=== PATIENT | male | born 2005 | race Caucasian/White ===

== ENCOUNTER 2023-10-25 22:45 | Emergency (ER) | payer OTHER, SELFPAY ==
[2023-10-25 22:47] VITALS: BP 161/84; PULSE 96; RESP 16; TEMP 36.8; O2SAT 99
--- NOTE | 2023-10-25 23:06 | PC.NURSE ---
Patient became pale and had a near syncopal episode in triage.
[2023-10-25 23:08] LABS: Basophils Absolute Auto 0.1 K/mm3 (0.0-0.1); Basophils Percent Auto 0.8 % (0.2-1.2); Eosinophils Absolute Auto 0.3 K/mm3 (0-0.3); Eosinophils Percent Auto 3.7 % (0-4.4); Hematocrit 47.4 % (42.0-52.0); Hemoglobin 16.1 g/dL (14.0-18.0); Immature Granulocyte Absolute 0.01 K/mm3 (0.00-0.031); Immature Granulocyte Percent A 0.1 % (0-0.5); Lymphocytes Percent Auto 41.3 % (18.3-44.2); Mean Corpuscular Hemoglobin 29.1 pg (26-34); Mean Corpuscular Volume 85.7 fl (80-100); Mean Platelet Volume 10.4 fl (7.4-10.4); Monocytes Absolute Auto 0.9 K/mm3 (0.1-0.6); Monocytes Percent Auto 9.4 % (2.6-8.5); Neutrophils Absolute Auto 4.1 K/mm3 (1.3-6.7); Neutrophils Percent Auto 44.7 % (45.5-73.1); Platelet Count Result 296 k/mm3 (150-375); Red Blood Count 5.53 M/mm3 (4.6-6.20); Red Cell Distribution Width 13.1 % (11.5-14.5); White Blood Count 9.2 K/mm3 (4.5-10.0)
[2023-10-25 23:14] LABS: Appearance Urine Clear (Clear); Bilirubin Urine Negative (Negative); Blood Urine Negative (Negative); Color Urine Yellow (Yellow); Glucose Urine UA Negative (Negative); Ketones Urine Negative (Negative); Leukocyte Esterase Ur Negative LEU/UL (Negative); Nitrate Urine Negative (Negative); Protein Urine Negative (Negative); Specific Grav Ur 1.024 (1.001-1.035)
[2023-10-25 23:22] LABS: Alanine Aminotransferase 35 U/L (6-50); Albumin Level 4.7 g/dL (3.5-5.1); Alkaline Phosphatase 54 U/L (38-126); Anion Gap 8 mmol/L (8-16); Aspartate Amino Transferase 35 U/L (17-59); Bilirubin,Total 0.6 mg/dL (0.2-1.3); Blood Urea Nitrogen 16 mg/dL (9-20); Calcium 9.5 mg/dL (8.4-10.2); Carbon Dioxide 27 mmol/L (22-30); Chloride 105 mmol/L (98-107); Estimated CRCL calculation 172 ml/min; Estimated Glomerular Filt Rate > 60; Glucose 93 mg/dL (65-110); Lipase 28 U/L (23-300); Potassium 3.8 mmol/L (3.4-5.0); Sodium 140 mmol/L (137-145)
[2023-10-25 23:23] LABS: Add Urine Microscopic? NO
[2023-10-25 23:41] VITALS: O2SAT 98
[2023-10-25 23:51] VITALS: O2SAT 98
[2023-10-26 00:02] VITALS: BP 130/63; PULSE 69
--- NOTE | 2023-10-26 00:02 | ED.GENADULT ---
HPI - General Adult General Chief complaint: Nausea/Vomiting/Diarrhea Stated complaint: vomiting/diarrhea/ruptured ear drum Time Seen by Provider: 10/25/23 23:30 Source: patient Mode of arrival: ambulatory Limitations: no limitations History of Present Illness HPI narrative: This is a 18-year-old male with chief complaint of nausea vomiting leading at 0900 this morning. He also had reports that during 1 of the episodes of vomiting he started to have some ear pain and felt some drainage out of the left ear. Reports that he had bloody drainage from this ear. States he has had multiple your problems in the past with multiple sets of tubes and ear infections on that left ear before. Denies abdominal pain, fevers, chills, GI bleeding symptoms, urinary symptoms. Denies sore throat cough cough, neck pain, headache. Related Data Allergies Allergy/AdvReac Type Severity Reaction Status Date / Time No Known Allergies Allergy Verified 10/25/23 22:50 Review of Systems Review of Systems: All systems as dictated in HPI Exam Narrative: GENERAL: Well-appearing, well-nourished, and in no acute distress. HEAD: Normocephalic, atraumatic. EYES: PERRLA and EOMI. ENT: Exam is 50 cm defect noted. There is prelim drainage increased erythema. There is some bloody drainage as well. The ear canal seems to be inflamed. Nares clear, no rhinorrhea or epistaxis. Mucous membranes moist. Oropharynx without tonsillar hypertrophy exudate or other lesions. NECK: Supple. No adenopathy or masses. CHEST: No respiratory distress. Clear to auscultation. No wheezes rales or rhonchi HEART: Regular rate and rhythm. No murmur heard. Normal peripheral pulses. ABDOMEN: Soft, nontender, nondistended, normal active bowel sounds. MSK: Normal range of motion. No edema. SKIN: Warm, dry, no rash. NEURO: Alert and oriented x3. No focal deficits. PSYCH: Normal mood and affect. Course Vital Signs Vital signs: Vital Signs Temperature 98.3 F 10/25/23 22:47 Pulse Rate 96 10/25/23 22:47 Respiratory Rate 16 10/25/23 22:47 Blood Pressure 161/84 H 10/25/23 22:47 Pulse Oximetry 99 10/25/23 22:47 Oxygen Delivery Room Air 12/19/23 22:47 Temperature 98.3 F 12/19/23 22:47 Pulse Rate 90 10/26/23 00:06 Respiratory Rate 16 10/25/23 22:47 Blood Pressure 136/72 10/26/23 00:16 Pulse Oximetry 98 10/26/23 00:17 Oxygen Delivery Room Air 10/25/23 22:47 Medical Decision Making MDM Narrative Medical decision making narrative: This is a 18-year-old male who presents to the ED for chief complaint of nausea vomiting. Additional complaint of left ear bloody drainage. Vitals are normal. physical exam shows a nonacute abdomen. There is evidence of left-sided ear infection with TM defect. Lab work is grossly normal. UA normal. gI symptoms consistent with gastroenteritis. He may also have concomitant ear infection on the left side which he has had several times in the past. They do seem to be separate issues. Your drops prescribed along with Augmentin. Instructed to make sure that he is getting adequate fluid intake as well as taking the antibiotics. ENT referral given. Pt will be discharged in stable condition with normal vitals. Return precautions given and supportive measures discussed. Pt is understanding and agreeable with plan for discharge and follow-up with PCP/ENT. Vital Signs Vital Signs: Vital Signs Temperature 98.3 F 10/25/23 22:47 Pulse Rate 96 10/25/23 22:47 Respiratory Rate 16 10/25/23 22:47 Blood Pressure 161/84 H 10/25/23 22:47 Pulse Oximetry 99 10/25/23 22:47 Oxygen Delivery Room Air 10/25/23 22:47 Temperature 98.3 F 10/25/23 22:47 Pulse Rate 90 10/26/23 00:06 Respiratory Rate 16 10/25/23 22:47 Blood Pressure 136/72 10/26/23 00:16 Pulse Oximetry 98 10/26/23 00:17 Oxygen Delivery Room Air 10/25/23 22:47 Lab Data 10/25/23 23:01 10/25/23 2
[2023-10-26 00:05] VITALS: BP 132/70; PULSE 72
[2023-10-26 00:06] VITALS: BP 126/70; PULSE 90
[2023-10-26 00:16] VITALS: BP 136/72; O2SAT 99
[2023-10-26 00:17] VITALS: O2SAT 98
[2023-10-26] MEDS: AMOXICILLIN/CLAVULANATE K 875-125 MG TAB 1 TABLET PO (00:26)
[2023-10-26] MEDS: CIPROFLOXACIN HC OTIC 10 ML 3 DROP LEFT EAR (00:26)
== END 2023-10-26 00:33 | disposition home or self-care (01) ==
PROVIDERS: Emergency Medicine; Emergency Provider Physician Assistant
DX: K52.9 Noninfective gastroenteritis and colitis, unspecified (principal); H66.92 Otitis media, unspecified, left ear
CPT/HCPCS: 36415; 80053; 81003; 83690; 85025; 99283; A9270